=== PATIENT | male | born 1950 | race Caucasian/White ===

== ENCOUNTER 2017-11-06 16:24 | Inpatient (IN) | payer OTHER ==
[~2017-11-06] VITALS: Ht 182.9 cm; Wt 123.0 kg
[~2017-11-06 16:24] MED LIST: ENOX120P SQ; LEVO112T2 PO; LISI10TA PO; OMEP20TA39 PO; OXYC1SOL5 PO; ROPI2 PO; TEMA15 PO; WARF10 PO
[2017-11-06 16:47] VITALS: BP 144/71; PULSE 85; RESP 26; TEMP 98.3; O2SAT 95
[2017-11-06 17:03] VITALS: BP 141/70; PULSE 82; RESP 20; O2SAT 94
[2017-11-06] MEDS ORDERED: LEVO112T2 PO (17:07)
[2017-11-06] MEDS ORDERED: OMEP20TA93 PO (17:07)
--- NOTE | 2017-11-06 17:34 | PD ---
HPI Chief Complaint: Respiratory Symptoms Time Seen by Provider: 17:05 Travel History International Travel<30 days: No Contact w/Intl Traveler<30days: No Traveled to known affect area: No History of Present Illness HPI 67-year-old male with history of renal cancer, previous pulmonary emboli, presents very with the report from [facility] stating that he had a pneumonia and new pulmonary emboli. The patient reports that over the last couple days he has not been feeling well. He reports that 24 hours ago he was very short of breath. Patient is an employee here at [employer]. When asked if he knew why he had previous pulmonary emboli, he states they never found the source and just assumed it was due to his neoplastic process with his kidney cancer. He had a nephrectomy in 2016 when he had his pulmonary embolus. PFSH Past Medical History Cancer: Yes (SKIN) Cardiovascular Problems: No Diabetes: No Endocrine: Yes Gastrointestinal Disorders: Yes (GERD, IBS) Genitourinary: No Hepatitis: No Hiatal Hernia: No Hypertension: Yes Immune Disorder: No Musculoskeletal: Yes (ARTHRITIS) Psychiatric: No Respiratory: No Thyroid Disease: Yes Past Surgical History AICD: No Joint Replacement: No Neurologic Surgery: Yes (LAMINECTOMY) Pacemaker: No Other Surgery: Yes (LEFT NEPHRECTOMY ) Social History Alcohol Use: Yes Tobacco Use: No Substance Use: No Allergies-Medications (Allergen,Severity, Reaction): Coded Allergies: Sulfa (Sulfonamide Antibiotics) (Unverified Adverse Reaction, Severe, GASTRIC/ ABDOMINAL CRAMPING, 03/03/17) Reported Meds & Prescriptions Reported Meds & Active Scripts Active Reported Losartan-Hydrochlorothiazide 50-12.5 Mg Tab 1 Tab PO DAILY Losartan-Hctz 50-12.5 mg Tab (Losartan/Hydrochlorothiazide) 50 Mg-12.5 Mg Tablet 20 Tamsulosin (Tamsulosin HCl) 0.4 Mg Cap 0.4 Mg HS Omeprazole 20 Mg Tab 20 Mg PO BID Levothyroxine (Levothyroxine Sodium) 112 Mcg Tab 112 Mcg PO DAILY Review of Systems Except as stated in HPI: all other systems reviewed are Neg General / Constitutional: No: Fever, Chills HENT: Positive: Lightheadedness, No: Headaches Cardiovascular: Positive: Chest Pain or Discomfort (Left lateral pleuritic), No : Palpitations, Diaphoresis Respiratory: Positive: Shortness of Breath, No: Wheezing, Sneezing Gastrointestinal: No: Nausea, Vomiting, Abdominal Pain Genitourinary: Positive: Flank Pain (Left upper flank), No: Dysuria Musculoskeletal: Positive: Weakness, No: Pain Neurologic: No: Weakness, Dizziness, Headache Physical Exam Narrative GENERAL: Well-developed well-nourished male in no acute respiratory distress. SKIN: Focused skin assessment warm/dry. HEAD: Atraumatic. Normocephalic. EYES: Pupils equal and round. No scleral icterus. No injection or drainage. ENT: No nasal bleeding or discharge. Mucous membranes pink and moist. NECK: Trachea midline. Supple. CARDIOVASCULAR: Regular rate and rhythm. No murmur appreciated. RESPIRATORY: No accessory muscle use. Questionable fine rales heard at the left lung base. Right lung hamilton appeared clear. GASTROINTESTINAL: Abdomen soft, non-tender, nondistended. MUSCULOSKELETAL: No obvious deformities. No clubbing. No cyanosis. No edema. No palpable cords. NEUROLOGICAL: Awake and alert. No obvious cranial nerve deficits. Motor grossly within normal limits. Normal speech. Data Data Last Documented VS Vital Signs Date Time Temp Pulse Resp B/P (MAP) Pulse Ox O2 Delivery O2 Flow Rate FiO2 11/06/17 17:03 82 20 141/70 (93) 94 Room Air 11/06/17 16:47 98.3 Orders Orders Electrocardiogram (11/06/17 ) Complete Blood Count With Diff (11/06/17 17:22) Comprehensive Metabolic Panel (11/06/17 17:22) Prothrombin Time / Inr (Pt) (11/06/17 17:22) Act Partial Throm Time (Ptt) (11/06/17 17:22) Iv Access Insert/Monitor (11/06/17 17:22) Ecg Monitoring (11/06/17 17:22) Oximetry (11/06/17 17:22) Type And Screen (11/06/17 17:22) Apixaban (Eliquis) (11/06/17 18:00) Ceftriaxone Inj (Rocephin Inj) (11/06/17 18:00) Azithromycin Inj (Zithromax Inj) (11/06/17 18:00) Blood Culture (11/06/17 17:50) Levothyroxine (Synthroid) (11/07/17 06:00) Pantoprazole (Protonix) (11/06/17 21:00) Admit To Inpatient (11/06/17 ) Vital Signs (Adult) Q4H (11/06/17 18:11) Activity Oob With Assistance (11/06/17 18:11) Track Broom Operator / Telemetry .CONTINUOUS (11/06/17 18:11) Diet Heart Healthy (11/06/17 Dinner) Sodium Chloride 0.9% Flush (Ns Flush) (11/06/17 18:15) Sodium Chloride 0.9% Flush (Ns Flush) (11/06/17 21:00) Acetaminophen (Tylenol) (11/06/17 18:15) Ondansetron Inj (Zofran Inj) (11/06/17 18:15) Resp Oxygen Stefano C Titrat 1-4 L (11/06/17 ) Scd Bilateral/Knee High LESLIE.BID (11/06/17 18:11) Naloxone Inj (Narcan Inj) (11/06/17 18:15) Docusate Sodium-Senna (Adenike-Colace) (11/06/17 21:00) Magnesium Hydroxide Liq (Milk Of Magnesi (11/06/17 18:15) Sennosides (Senokot) (11/06/17 18:15) Bisacodyl Supp (Dulcolax Supp) (11/06/17 18:15) Lactulose Liq (Lactulose Liq) (11/06/17 18:15) Inpatient Certification (11/06/17 ) Admit Order (Ed Use Only) (11/06/17 18:31) Us Leg Venous Doppler Bilat (11/06/17 18:32) Labs Laboratory Tests Test 11/06/17 17:44 White Blood Count 10.5 TH/MM3 Red Blood Count 4.70 MIL/MM3 Hemoglobin 14.8 GM/DL Hematocrit 43.4 % Mean Corpuscular Volume 92.3 FL Mean Corpuscular Hemoglobin 31.5 PG Mean Corpuscular Hemoglobin Concent 34.1 % Red Cell Distribution Width 12.7 % Platelet Count 238 TH/MM3 Mean Platelet Volume 7.9 FL Neutrophils (%) (Auto) 70.9 % Lymphocytes (%) (Auto) 14.0 % Monocytes (%) (Auto) 12.6 % Eosinophils (%) (Auto) 2.2 % Basophils (%) (Auto) 0.3 % Neutrophils # (Auto) 7.4 TH/MM3 Lymphocytes # (Auto) 1.5 TH/MM3 Monocytes # (Auto) 1.3 TH/MM3 Eosinophils # (Auto) 0.2 TH/MM3 Basophils # (Auto) 0.0 TH/MM3 CBC Comment DIFF FINAL Differential Comment Prothrombin Time 10.2 SEC Prothromb Time International Ratio 1.0 RATIO Activated Partial Thromboplast Time 24.5 SEC Blood Urea Nitrogen 17 MG/DL Creatinine 1.58 MG/DL Random Glucose 107 MG/DL Total Protein 7.7 GM/DL Albumin 3.8 GM/DL Calcium Level 8.6 MG/DL Alkaline Phosphatase 78 U/L Aspartate Amino Transf (AST/SGOT) 19 U/L Alanine Aminotransferase (ALT/SGPT) 24 U/L Total Bilirubin 0.5 MG/DL Sodium Level 138 MEQ/L Potassium Level 4.2 MEQ/L Chloride Level 105 MEQ/L Carbon Dioxide Level 28.2 MEQ/L Anion Gap 5 MEQ/L Estimat Glomerular Filtration Rate 44 ML/MIN MDM Medical Decision Making Medical Screen Exam Complete: Yes Emergency Medical Condition: Yes Differential Diagnosis Pneumonia versus pulmonary embolus versus DVT Narrative Course 67-year-old male with a history of renal cell carcinoma status post nephrectomy , previous pulmonary embolus in 2016, who presents today with diagnosis of pulmonary embolus and left lower lobe pneumonia. Patient states that he was seen at the [facility]. He states that he had a chest x-ray that showed a pneumonia. He states they also did a CT scan of his chest which showed pulmonary embolus. The patient had been on 6 months of warfarin in 2016. He states they stopped that warfarin because his pulmonary embolus had resolved. There is no reported fevers, chills. He has been started on Rocephin and Zithromax. Cultures are pending. He is also been started on Eliquis. He is given his first dose of 5 mg here in the emergency department. The case was discussed with Dr. Alejandro Noland, [facility] physician covering tonight. He agrees with the admission and requested we put the patient under Dr. Edison Parham. Bilateral lower extremity ultrasounds have been ordered. They are currently pending. Diagnosis Primary Impression: Pulmonary embolus Additional Impressions: Pneumonia History of left renal cancer Admitting Information Admitting Physician Requests: Admit Faheem Delatorre MD Nov 06, 2017 17:34
[2017-11-06] MEDS ORDERED: APIXABAN 5 MG TABLET PO ONE (18:00)
[2017-11-06] MEDS ORDERED: cefTRIAXone INJ 1,000 MG in SODIUM CHLORIDE 0.9% INJ 100 ML IV ONE (18:00)
[2017-11-06] MEDS ORDERED: AZITHROMYCIN INJ 500 MG in SODIUM CHLOR 0.9% 250 ML INJ 250 ML IV ONE (18:00)
[2017-11-06 18:11] LABS: AUTOMATED NEUTROPHIL # 7.4 TH/MM3 (1.8-7.7); BASOPHIL % 0.3 % (0.0-2.0); EOSINOPHIL # 0.2 TH/MM3 (0-0.4); EOSINOPHIL % 2.2 % (0.0-4.0); HEMATOCRIT 43.4 % (39.0-51.0); HEMOGLOBIN 14.8 GM/DL (13.0-17.0); LYMPHOCYTE # 1.5 TH/MM3 (1.0-4.8); MEAN CELL VOLUME 92.3 FL (80.0-100.0); MEAN CORPUSCULAR HEMOGLOBIN 31.5 PG (27.0-34.0); MEAN CORPUSCULAR HGB CONC 34.1 % (32.0-36.0); MEAN PLATELET VOLUME 7.9 FL (7.0-11.0); MONO % 12.6 % (0.0-8.0); MONOCYTE # 1.3 TH/MM3 (0-0.9); NEUT % 70.9 % (16.0-70.0); PLATELET COUNT 238 TH/MM3 (150-450); RED CELL DISTRIBUTION WIDTH 12.7 % (11.6-17.2); WHITE BLOOD COUNT 10.5 TH/MM3 (4.0-11.0)
[2017-11-06] MEDS ORDERED: ACETAMINOPHEN 325 MG TAB PO PRN (18:15)
[2017-11-06] MEDS ORDERED: MAGNESIUM HYDROXIDE SUSP 30 ML CUP PO PRN (18:15)
[2017-11-06] MEDS ORDERED: SENNOSIDES 8.6 MG TAB PO PRN (18:15)
[2017-11-06] MEDS ORDERED: BISACODYL 10 MG SUPP RECTAL PRN (18:15)
[2017-11-06] MEDS ORDERED: SODIUM CHLORIDE 0.9% FLUSH 10 ML FLUSH IV FLUSH PRN (18:15)
[2017-11-06] MEDS ORDERED: NALOXONE HCL 0.4 MG/ML AMP IV PUSH PRN (18:15)
[2017-11-06] MEDS ORDERED: ONDANSETRON HCL 4 MG/2 ML VIAL IVP PRN (18:15)
[2017-11-06] MEDS ORDERED: LACTULOSE SYRUP 20 GM/30 ML CUP PO PRN (18:15)
[2017-11-06 18:19] LABS: PROTHROMBIN TIME - PATIENT 10.2 SEC (9.8-11.6)
[2017-11-06 18:29] LABS: ALBUMIN 3.8 GM/DL (3.4-5.0); ALT (GPT) 24 U/L (12-78); AST (GOT) 19 U/L (15-37); BICARBONATE 28.2 MEQ/L (21.0-32.0); BLOOD UREA NITROGEN 17 MG/DL (7-18); CALCIUM 8.6 MG/DL (8.5-10.1); CHLORIDE 105 MEQ/L (98-107); CREATININE 1.58 MG/DL (0.60-1.30); GLOMERULAR FILTRATION RATE 44 ML/MIN (>89); GLUCOSE,RANDOM 107 MG/DL (74-106); SODIUM (NA) 138 MEQ/L (136-145)
[2017-11-06 18:31] LABS: ALKALINE PHOSPHATASE 78 U/L (45-117); TOTAL BILIRUBIN ADULT 0.5 MG/DL (0.2-1.0); TOTAL PROTEIN 7.7 GM/DL (6.4-8.2)
[2017-11-06] MEDS ORDERED: LOSA50TA2 PO (18:44)
[2017-11-06] MEDS ORDERED: TAMS0.4C4 (18:44)
[2017-11-06] MEDS ORDERED: LOSA50TA6 (18:44)
[2017-11-06 20:00] VITALS: PULSE 90
[2017-11-06 20:06] VITALS: BP 137/78; PULSE 77; RESP 16; O2SAT 95
--- NOTE | 2017-11-06 20:41 | RADRPT ---
EXAM DATE/TIME: 11/06/2017 19:17 [facility] COMPARISON: US LEG BILATERAL VENOUS DOPPLER, July 28, 2015, 19:18. INDICATIONS : Pulmonary embolism. MEDICAL HISTORY : Gastroesophageal reflux disease. Hypertension. Pulmonary embolis. Left renal cancer. Skin cancer. Th yroid disease. Arthritis. Syncope. IBS. SURGICAL HISTORY : Nephrectomy, left. Laminectomy. ENCOUNTER: Subsequent ACUITY: 1 day PAIN SCORE: 0/10 LOCATION: Bilateral legs. TECHNIQUE: Venous ultrasound of the left and right leg was performed from the inguinal ligament to the proximal calf. Real-time, color Doppler and spectral tracing, compression and augmentation techniques were us ed. FINDINGS: RIGHT LEG: There is normal compressibility of the deep venous system from the inguinal region to the proximal ca lf. No echogenic clot is seen in the lumen of the common femoral, femoral, popliteal, and posterior tibial veins. There is a normal response of the venous system to proximal and distal augmentation an d respiration. LEFT LEG: There is normal compressibility of the deep venous system from the inguinal region to the proximal ca lf. No echogenic clot is seen in the lumen of the common femoral, femoral, popliteal, and posterior tibial veins. There is a normal response of the venous system to proximal and distal augmentation an d respiration. CONCLUSION: No DVT. Ernesto Das MD on November 06, 2017 at 20:38 Board Certified Radiologist. This report was verified electronically.
[2017-11-06] MEDS: DOCUSATE SODIUM 50 MG/SENNA 8.6 MG TAB PO SCH (21:10)
[2017-11-06] MEDS: PANTOPRAZOLE SOD 20 MG DELAYED RELEASE TAB PO SCH (21:10)
[2017-11-06] MEDS: SODIUM CHLORIDE 0.9% FLUSH 10 ML FLUSH IV FLUSH SCH (21:10)
--- NOTE | 2017-11-06 21:43 | HHI.HP ---
HPI Service [facility] Primary Care Physician Salty Wallace MD Admission Diagnosis Pulmonary embolus, pneumonia, hx of renal cancer Chief Complaint: sent by [facility] for pneumonia and PE Travel History International Travel<30 Days: No Contact w/Intl Traveler <30 Da: No Traveled to Known Affected Are: No History of Present Illness 67 y/o male with hx renal cell cancer with left nephrectomy in past who has hx of pulmonary embolus treated in 2016 with coumadin for 6 months ,who for last day or so has felt poor with SOB,,left sided back pain and went to [facility] for evaluation and they ordered chest xray which showed left lower lobe infiltrate and there was suspicion of PE a CT was done which showed right lower lobe PE and sent to [place] for admit. In er started on Eliquis and rocephin and zithromax and will continued at this time. Review of Systems Respiratory: COMPLAINS OF: Shortness of breath Musculoskeletal: COMPLAINS OF: Back pain Past Family Social History Past Medical History left renal cell ca,hypertension,djd,PE,GERD Past Surgical History left nephrectomy,laminectomy Reported Medications losartan 50,hctz12.5,tamsulosin prilosecd,levothyroxine Allergies: Coded Allergies: Sulfa (Sulfonamide Antibiotics) (Unverified Adverse Reaction, Severe, GASTRIC/ ABDOMINAL CRAMPING, 03/03/17) Social History NS,ND Physical Exam Vital Signs Vital Signs Date Time Temp Pulse Resp B/P (MAP) Pulse Ox O2 Delivery O2 Flow Rate FiO2 11/06/17 20:06 77 16 137/78 (97) 95 Nasal Cannula 2.00 11/06/17 17:03 82 20 141/70 (93) 94 Room Air 11/06/17 17:03 81 20 94 Room Air 11/06/17 16:47 98.3 85 26 144/71 (95) 95 Physical Exam GENERAL: This is a well-nourished, well-developed patient, in no apparent distress. SKIN: No rashes, ecchymoses or lesions. Cool and dry. HEAD: Atraumatic. Normocephalic. No temporal or scalp tenderness. EYES: Pupils equal round and reactive. Extraocular motions intact. No scleral icterus. No injection or drainage. ENT: Nose without bleeding, purulent drainage or septal hematoma. Throat without erythema, tonsillar hypertrophy or exudate. Uvula midline. Airway patent. NECK: Trachea midline. No JVD or lymphadenopathy. Supple, nontender, no meningeal signs. CARDIOVASCULAR: Regular rate and rhythm without murmurs, gallops, or rubs. RESPIRATORY: Clear to auscultation. Breath sounds equal bilaterally. rales left base GASTROINTESTINAL: Abdomen soft, non-tender, nondistended. No hepato-splenomegaly , or palpable masses. No guarding. MUSCULOSKELETAL: Extremities without clubbing, cyanosis, or edema. No joint tenderness, effusion, or edema noted. No calf tenderness. Negative Homans sign bilaterally. NEUROLOGICAL: Awake and alert. Cranial nerves II through XII intact. Motor and sensory grossly within normal limits. Five out of 5 muscle strength in all muscle groups. Normal speech. Laboratory Laboratory Tests Test 11/06/17 17:44 White Blood Count 10.5 Red Blood Count 4.70 Hemoglobin 14.8 Hematocrit 43.4 Mean Corpuscular Volume 92.3 Mean Corpuscular Hemoglobin 31.5 Mean Corpuscular Hemoglobin Concent 34.1 Red Cell Distribution Width 12.7 Platelet Count 238 Mean Platelet Volume 7.9 Neutrophils (%) (Auto) 70.9 Lymphocytes (%) (Auto) 14.0 Monocytes (%) (Auto) 12.6 Eosinophils (%) (Auto) 2.2 Basophils (%) (Auto) 0.3 Neutrophils # (Auto) 7.4 Lymphocytes # (Auto) 1.5 Monocytes # (Auto) 1.3 Eosinophils # (Auto) 0.2 Basophils # (Auto) 0.0 CBC Comment DIFF FINAL Differential Comment Prothrombin Time 10.2 Prothromb Time International Ratio 1.0 Activated Partial Thromboplast Time 24.5 Blood Urea Nitrogen 17 Creatinine 1.58 Random Glucose 107 Total Protein 7.7 Albumin 3.8 Calcium Level 8.6 Alkaline Phosphatase 78 Aspartate Amino Transf (AST/SGOT) 19 Alanine Aminotransferase (ALT/SGPT) 24 Total Bilirubin 0.5 Sodium Level 138 Potassium Level 4.2 Chloride Level 105 Carbon Dioxide Level 28.2 Anion Gap 5 Estimat Glomerular Filtration Rate 44 Date/Time Source Procedure Growth Status 11/06/17 17:55 Blood Peripheral Aerobic Blood Culture Pending Received 11/06/17 17:55 Blood Peripheral Anaerobic Blood Culture Pending Received Result Diagram: 11/06/17 1744 11/06/17 1744 Imaging reports from outpatient left lower lobe infiltrate and rt lower lobe PE Course start rocephin and zithromax and eliquis Caprini VTE Risk Assessment Caprini VTE Risk Assessment: Mod/High Risk (score >= 2) Caprini Risk Assessment Model Point Value = 1 Point Value = 2 Point Value = 3 Point Value = 5 Age 41-60 Minor surgery BMI > 25 kg/m2 Swollen legs Varicose veins or History of unexplained or recurrent spontaneous Oral contraceptives or hormone replacement Sepsis (< 1 month) Serious lung disease, including pneumonia (< 1 month) Abnormal pulmonary function Acute myocardial infarction Congestive heart failure (< 1 month) History of inflammatory bowel disease Medical patient at bed rest Age 61-74 Arthroscopic surgery Major open surgery (> 45 min) Laparoscopic surgery (> 45 min) Malignancy Confined to bed (> 72 hours) Immobilizing plaster cast Central venous access Age >= 75 History of VTE Family history of VTE Factor V Leiden Prothrombin [id number] Lupus anticoagulant Anticardiolipin antibodies Elevated serum homocysteine Heparin-induced thrombocytopenia Other congenital or acquired thrombophilia Stroke (< 1 month) Elective arthroplasty Hip, pelvis, or leg fracture Acute spinal cord injury (< 1 month) Prophylaxis Regimen Total Risk Factor Score Risk Level Prophylaxis Regimen 0-1 Low Early ambulation 2 Moderate Order ONE of the following: *Sequential Compression Device (SCD) *Heparin 5000 units SQ BID 3-4 Higher Order ONE of the following medications: *Heparin 5000 units SQ TID *Enoxaparin/Lovenox 40 mg SQ daily (WT < 150 kg, CrCl > 30 mL/min) *Enoxaparin/Lovenox 30 mg SQ daily (WT < 150 kg, CrCl > 10-29 mL/min) *Enoxaparin/Lovenox 30 mg SQ BID (WT < 150 kg, CrCl > 30 mL/min) AND/OR *Sequential Compression Device (SCD) 5 or more Highest Order ONE of the following medications: *Heparin 5000 units SQ TID (Preferred with Epidurals) *Enoxaparin/Lovenox 40 mg SQ daily (WT < 150 kg, CrCl > 30 mL/min) *Enoxaparin/Lovenox 30 mg SQ daily (WT < 150 kg, CrCl > 10-29 mL/min) *Enoxaparin/Lovenox 30 mg SQ BID (WT < 150 kg, CrCl > 30 mL/min) AND *Sequential Compression Device (SCD) Assessment and Plan Problem List: (1) Pulmonary emboli ICD Codes: I26.99 - Other pulmonary embolism without acute cor pulmonale Status: Acute Plan: start eliquis 5 bid oxygen prn pain med prn (2) Lung infiltrate ICD Codes: R91.8 - Other nonspecific abnormal finding of lung field Plan: recheck xray in am rocephin and zithromax (3) Hypertension ICD Codes: I10 - Essential (primary) hypertension Plan: continue current medications Assessment and Plan further plan as case develops may need to obtain lab work for recurrent PE Code Status full Discussed Condition With patient Physician Certification 2 Midnight Certification Type: Admission for Inpatient Services Order for Inpatient Services The services are ordered in accordance with Medicare regulations or non- Medicare payer requirements, as applicable. In the case of services not specified as inpatient-only, they are appropriately provided as inpatient services in accordance with the 2-midnight benchmark. Estimated LOS (days): 2 2 days is the estimated time the patient will need to remain in the hospital, assuming treatment plan goals are met and no additional complications. Post-Hospital Plan: Home Alejandro Christianson MD Nov 06, 2017 21:43
[2017-11-06] MEDS ORDERED: cefTRIAXone INJ 1,000 MG in SODIUM CHLORIDE 0.9% INJ 100 ML IV SCH (22:00)
[2017-11-06] MEDS ORDERED: AZITHROMYCIN INJ 500 MG in SODIUM CHLOR 0.9% 250 ML INJ 250 ML IV SCH (23:00)
[2017-11-07] VITALS (9 sets, daily range): BP systolic 111–139; BP diastolic 58–75; PULSE 64–79; RESP 16–20; TEMP 97.6–98.4; O2SAT 92–96
[2017-11-07] MEDS: MORPHINE SULFATE 2 MG/ML SYRINGE IV PUSH PRN ×2 (02:34→11:51)
[2017-11-07] MEDS: LEVOTHYROXINE SODIUM 112 MCG TAB PO SCH (06:58)
[2017-11-07] MEDS: DOCUSATE SODIUM 50 MG/SENNA 8.6 MG TAB PO SCH ×2 (08:38→20:45)
[2017-11-07] MEDS: HYDROCHLOROTHIAZIDE 12.5 MG CAP PO SCH (08:39)
[2017-11-07] MEDS: PANTOPRAZOLE SOD 20 MG DELAYED RELEASE TAB PO SCH ×2 (08:39→20:45)
[2017-11-07] MEDS: APIXABAN 5 MG TABLET PO SCH ×2 (08:39→20:45)
[2017-11-07] MEDS: LOSARTAN 50 MG TAB PO SCH (08:39)
[2017-11-07] MEDS: SODIUM CHLORIDE 0.9% FLUSH 10 ML FLUSH IV FLUSH SCH ×2 (08:40→20:51)
--- NOTE | 2017-11-07 11:26 | HHI.PR ---
Subjective Remarks feeling a little better. Objective Vitals heart reg lung good air entry abd s/nt ext no edema Vital Signs Date Time Temp Pulse Resp B/P (MAP) Pulse Ox O2 Delivery O2 Flow Rate FiO2 11/07/17 08:00 69 11/07/17 08:00 97.6 79 18 139/58 (85) 92 11/07/17 04:00 97.9 69 17 128/66 (86) 96 11/07/17 01:00 98.4 75 16 134/75 (94) 95 11/07/17 00:55 11/06/17 20:06 77 16 137/78 (97) 95 Nasal Cannula 2.00 11/06/17 20:00 90 11/06/17 17:03 82 20 141/70 (93) 94 Room Air 11/06/17 17:03 81 20 94 Room Air 11/06/17 16:47 98.3 85 26 144/71 (95) 95 Result Diagram: 11/06/17 1740 11/06/17 1744 Imaging reports from outpatient left lower lobe infiltrate and rt lower lobe PE A/P Problem List: (1) Pulmonary emboli ICD Codes: I26.99 - Other pulmonary embolism without acute cor pulmonale Status: Acute Plan: 1. admitted with probably left lung pna. 2. cta chest done outpt showed tiny right lower lung p.e. ?new vs residual. pt had right pulm art p.e. back in 2016 and received 6m coumadin. 3. left rcc s/p nephrectomy 2016 cont iv abx for pna blood cx pending. check urine antigens pt started on eliquis yesterday by ED. was trying to compare the CTA from yesterday to 2016...unable to locate the disc as it has apparently been lost between ED to admission. will try to obtain another copy but it is weekend and closed. (2) Lung infiltrate ICD Codes: R91.8 - Other nonspecific abnormal finding of lung field Status: Acute (3) Hypertension ICD Codes: I10 - Essential (primary) hypertension Status: Chronic Plan: continue current medications (4) Renal cell carcinoma ICD Codes: C64.9 - Malignant neoplasm of unspecified kidney, except renal pelvis Status: Resolved Edison Parham MD Nov 07, 2017 11:26
--- NOTE | 2017-11-07 16:59 | EKG ---
Date Performed: 11/06/2017 Time Performed: 17:29:44 PTAGE: 67 years EKG: Sinus rhythm NORMAL ECG Since the PREVIOUS TRACING , no significant change noted PREVIOUS TRACIN07/28/2015 22.04 DOCTOR: Jairo Buck Interpretating Date/Time 11/07/2017 16:55:06
[2017-11-07] MEDS: cefTRIAXone INJ 1,000 MG in SODIUM CHLORIDE 0.9% INJ 100 ML IV SCH (17:23)
[2017-11-07] MEDS: AZITHROMYCIN INJ 500 MG in SODIUM CHLOR 0.9% 250 ML INJ 250 ML IV SCH (18:52)
[2017-11-07] MEDS: diphenhydrAMINE HCL 25 MG CAP PO PRN (22:20)
[2017-11-08] VITALS (9 sets, daily range): BP systolic 108–135; BP diastolic 61–79; PULSE 63–97; RESP 15–22; TEMP 97.6–98.1; O2SAT 93–95
[2017-11-08] MEDS: LEVOTHYROXINE SODIUM 112 MCG TAB PO SCH (06:31)
[2017-11-08 07:15] LABS: AUTOMATED NEUTROPHIL # 4.9 TH/MM3 (1.8-7.7); BASOPHIL % 0.4 % (0.0-2.0); EOSINOPHIL # 0.4 TH/MM3 (0-0.4); EOSINOPHIL % 4.7 % (0.0-4.0); HEMATOCRIT 41.9 % (39.0-51.0); HEMOGLOBIN 14.4 GM/DL (13.0-17.0); LYMPH % 18.2 % (9.0-44.0); LYMPHOCYTE # 1.4 TH/MM3 (1.0-4.8); MEAN CELL VOLUME 90.4 FL (80.0-100.0); MEAN CORPUSCULAR HEMOGLOBIN 31.1 PG (27.0-34.0); MEAN CORPUSCULAR HGB CONC 34.4 % (32.0-36.0); MEAN PLATELET VOLUME 7.5 FL (7.0-11.0); MONOCYTE # 0.9 TH/MM3 (0-0.9); NEUT % 64.7 % (16.0-70.0); PLATELET COUNT 266 TH/MM3 (150-450); RED BLOOD COUNT 4.63 MIL/MM3 (4.50-5.90); RED CELL DISTRIBUTION WIDTH 12.4 % (11.6-17.2); WHITE BLOOD COUNT 7.6 TH/MM3 (4.0-11.0)
[2017-11-08 07:40] LABS: BICARBONATE 25.8 MEQ/L (21.0-32.0); CALCIUM 8.5 MG/DL (8.5-10.1); CREATININE 1.07 MG/DL (0.60-1.30)
[2017-11-08] MEDS: HYDROCHLOROTHIAZIDE 12.5 MG CAP PO SCH (08:37)
[2017-11-08] MEDS: PANTOPRAZOLE SOD 20 MG DELAYED RELEASE TAB PO SCH ×2 (08:37→20:11)
[2017-11-08] MEDS: LOSARTAN 50 MG TAB PO SCH (08:37)
[2017-11-08] MEDS: DOCUSATE SODIUM 50 MG/SENNA 8.6 MG TAB PO SCH ×2 (08:37→20:11)
[2017-11-08] MEDS: APIXABAN 5 MG TABLET PO SCH ×2 (08:37→20:11)
[2017-11-08] MEDS: SODIUM CHLORIDE 0.9% FLUSH 10 ML FLUSH IV FLUSH SCH ×2 (08:38→20:12)
[2017-11-08] MEDS: guaiFENesin E.R. 600 MG TAB PO SCH ×2 (10:25→20:11)
[2017-11-08] MEDS ORDERED: LORATADINE 10 MG TAB PO ONE (11:00)
--- NOTE | 2017-11-08 16:14 | HHI.PR ---
Subjective Remarks feeling better. Objective Vitals heart reg lung few course bs left base abd s/nt ext no edema Vital Signs Date Time Temp Pulse Resp B/P (MAP) Pulse Ox O2 Delivery O2 Flow Rate FiO2 11/08/17 12:00 67 11/08/17 12:00 98.1 70 16 133/79 (97) 95 11/08/17 08:00 97.7 74 16 108/61 (77) 94 11/08/17 08:00 63 11/08/17 04:00 98.0 68 22 121/64 (83) 93 11/08/17 03:42 66 11/08/17 00:00 98.0 69 20 135/65 (88) 94 11/07/17 23:42 66 11/07/17 20:33 94 21 11/07/17 20:00 98.0 68 20 119/72 (88) 94 11/07/17 19:42 72 Result Diagram: 11/08/17 0658 11/08/17 0658 Imaging reports from outpatient left lower lobe infiltrate and rt lower lobe PE A/P Problem List: (1) Pulmonary emboli ICD Codes: I26.99 - Other pulmonary embolism without acute cor pulmonale Status: Acute Plan: 1. admitted with left lung pna at the base. 2. cta chest done outpt showed tiny right lower lung p.e. ?new vs residual. pt had right pulm art p.e. back in 2016 and received 6m coumadin. After reviewing the CTA from 2016 vs the CTA from this week... my guess is it's probably tiny residual from prior PE and doubt it has anything to do with his presenting sx's 3. left rcc s/p nephrectomy 2016 cont iv abx for pna. plan for d/c home tomorrow on po abx add mucinex and also claritin for post nasal gtt. I think he should f/u pcp closely and get repeat outpt cxr to assure resolution especially given his rcc hx. blood cx ngtd. urine antigens neg. pt started on eliquis by ED. will call pcp tomorrow and discuss what to do in this situation. (2) Lung infiltrate ICD Codes: R91.8 - Other nonspecific abnormal finding of lung field Status: Acute (3) Hypertension ICD Codes: I10 - Essential (primary) hypertension Status: Chronic Plan: continue current medications (4) Renal cell carcinoma ICD Codes: C64.9 - Malignant neoplasm of unspecified kidney, except renal pelvis Status: Resolved Edison Parham MD Nov 08, 2017 16:14
[2017-11-08] MEDS: cefTRIAXone INJ 1,000 MG in SODIUM CHLORIDE 0.9% INJ 100 ML IV SCH (17:24)
[2017-11-08] MEDS: AZITHROMYCIN INJ 500 MG in SODIUM CHLOR 0.9% 250 ML INJ 250 ML IV SCH (18:33)
[2017-11-08] MEDS: diphenhydrAMINE HCL 25 MG CAP PO PRN (22:49)
[2017-11-09] VITALS (7 sets, daily range): BP systolic 124–166; BP diastolic 66–88; PULSE 61–92; RESP 18–20; TEMP 97.7–98.6; O2SAT 95–96
[2017-11-09] MEDS: LEVOTHYROXINE SODIUM 112 MCG TAB PO SCH (05:03)
[2017-11-09] MEDS ORDERED: LORATADINE 10 MG TAB PO SCH (09:00)
[2017-11-09] MEDS: APIXABAN 5 MG TABLET PO SCH (09:50)
[2017-11-09] MEDS: PANTOPRAZOLE SOD 20 MG DELAYED RELEASE TAB PO SCH (09:50)
[2017-11-09] MEDS: DOCUSATE SODIUM 50 MG/SENNA 8.6 MG TAB PO SCH (09:50)
[2017-11-09] MEDS: guaiFENesin E.R. 600 MG TAB PO SCH (09:50)
[2017-11-09] MEDS: HYDROCHLOROTHIAZIDE 12.5 MG CAP PO SCH (09:50)
[2017-11-09] MEDS: LOSARTAN 50 MG TAB PO SCH (09:50)
[2017-11-09] MEDS: SODIUM CHLORIDE 0.9% FLUSH 10 ML FLUSH IV FLUSH SCH (09:55)
[2017-11-09] MEDS ORDERED: APIX5TAB PO (14:16)
[2017-11-09] MEDS ORDERED: CLAR10TA7 PO (14:16)
[2017-11-09] MEDS ORDERED: guaiFENesin ER PO (14:16)
--- NOTE | 2017-11-09 14:25 | HHI.DCPOC ---
Discharge Care Plan Diagnosis: (1) Lung infiltrate (2) Pulmonary emboli (3) Renal cell carcinoma (4) Hypertension Goals to Promote Your Health * To prevent worsening of your condition and complications * To maintain your health at the optimal level Directions to Meet Your Goals Take your medications as prescribed Follow your dietary instruction Follow activity as directed Keep your appointments as scheduled Take your immunizations and boosters as scheduled If your symptoms worsen call your PCP, if no PCP go to Urgent Care Center or Emergency Room Smoking is Dangerous to Your Health. Avoid second hand smoke Call the 24-hour hour crisis hotline for domestic abuse at Vandana Ribeiro Nov 09, 2017 14:25
--- NOTE | 2017-11-09 15:18 | HHI.DS ---
Discharge Summary Admission Date Nov 06, 2017 at 18:34 Discharge Date: Nov 09, 2017 Admitting Diagnosis Pulmonary embolus, pneumonia, hx of renal cancer (1) Pulmonary emboli Diagnosis: Secondary ICD Codes: I26.99 - Other pulmonary embolism without acute cor pulmonale Status: Acute (2) Lung infiltrate Diagnosis: Principal ICD Codes: R91.8 - Other nonspecific abnormal finding of lung field Status: Acute (3) Hypertension Diagnosis: Secondary ICD Codes: I10 - Essential (primary) hypertension Status: Chronic (4) Renal cell carcinoma Diagnosis: Secondary ICD Codes: C64.9 - Malignant neoplasm of unspecified kidney, except renal pelvis Status: Resolved Brief History 67 y/o male with hx renal cell cancer with left nephrectomy in past who has hx of pulmonary embolus treated in 2016 with coumadin for 6 months ,who for last day or so has felt poor with SOB,,left sided back pain and went to [facility] for evaluation and they ordered chest xray which showed left lower lobe infiltrate and there was suspicion of PE a CT was done which showed right lower lobe PE and sent to [place] for admit. In er started on Eliquis and rocephin and zithromax and will continued at this time. CBC/BMP: 11/08/17 0658 11/08/17 0658 Significant Findings Laboratory Tests Test 11/06/17 17:44 11/08/17 06:58 Neutrophils (%) (Auto) 70.9 % (16.0-70.0) Monocytes (%) (Auto) 12.6 % (0.0-8.0) 12.0 % (0.0-8.0) Monocytes # (Auto) 1.3 TH/MM3 (0-0.9) Creatinine 1.58 MG/DL (0.60-1.30) Random Glucose 107 MG/DL (74-106) 111 MG/DL (74-106) Estimat Glomerular Filtration Rate 44 ML/MIN (>89) 69 ML/MIN (>89) Eosinophils (%) (Auto) 4.7 % (0.0-4.0) Imaging Last Impressions Lower Extremity Ultrasound 11/06/17 3382 Signed Impressions: Service Date/Time: Monday, November 06, 2017 19:17 - CONCLUSION: No DVT. Ernesto Das MD Hospital Course Pulmonary emboli - Pt is a 67 y/o WM with hx of renal cell cancer s/p left nephrectomy, and hx of pulmonary embolus treated in 2016 with Coumadin for 6 months. Pt had been having increased SOB and went to [facility] Urgent care for evaluation and they ordered chest X-ray which showed left lower lobe infiltrate and there was suspicion of PE so a CTA was performed which showed a tiny right lower lobe PE and pt was sent to [place] for admit. Pt was admitted with left lung PNA at the base. He has been treated with Azithromycin and Rocephin IV with clinical improvement. Mucinex and Claritin were added on 11/08 for complaints of post- nasal drip. Blood cx with NGTD. Urine antigens were negative. Pt will be discharged with 5 more day antibiotics with Levaquin 500mg po Daily. He can continue the Mucinex and the Claritin as well. Pt will likely need repeat imaging of the chest to assure resolution of the pneumonia in the setting of his hx of RCC. It was not clear if the tiny right lower lung PE is new vs residual. The case was discussed with the pts PCP, Dr. Wallace, and we will continue Eliquis 5mg po BID and Dr. Wallace will follow this as an outpt. Pt is to followup with his PCP, Dr. Wallace, in 1 week. Coronary Artery Calcifications - Pt with incidental finding of coronary artery calcifications on CTA and pt is very concerned about this given his family hx of CAD and his brother dying at a young age related to this. We offered for the pt to stay to get a stress test here at the hospital but he declined. He has not been having any chest pain. We will have him followup with [facility] Cardiology, Dr. Shaheen Can, in the next 1-2 weeks for evaluation. Pt Condition on Discharge: Stable Discharge Disposition: Discharge Home Discharge Instructions DIET: Follow Instructions for: Heart Healthy Diet Activities you can perform: Regular-No Restrictions Follow up Referrals: Cardiology - [address] Shaheen Can PCP Follow-up - [address] Wallace New Medications: Levofloxacin (Levofloxacin) 500 Mg Tablet 500 MG PO DAILY for Infection, #5 TAB 0 Refills Apixaban (Eliquis) 5 Mg Tab 5 MG PO BID for PE, #62 TAB Loratadine (Claritin) 10 Mg Tablet 10 MG PO DAILY for pneumonia, #10 TAB [guaiFENesin ER] () 600 MG TABCR 600 MG PO BID for pneumonia, #7 TAB Continued Medications: Levothyroxine (Levothyroxine) 112 Mcg Tab 112 MCG PO DAILY for Thyroid, TAB 0 Refills Losartan-Hydrochlorothiazide (Losartan-Hydrochlorothiazide) 50-12.5 Mg Tab 1 TAB PO DAILY for Blood Pressure Management, TAB 0 Refills Omeprazole (Omeprazole) 20 Mg Tab 20 MG PO BID, TAB 0 Refills Tamsulosin (Tamsulosin) 0.4 Mg Cap 0.4 MG HS for Manage Prostate Problems, CAP 0 Refills Vandana Ribeiro Nov 09, 2017 15:18
[2017-11-09] MEDS ORDERED: LEVO500T8 PO (15:36)
[2017-11-09] MEDS ORDERED: LEVOFLOXACIN 500 MG TAB PO ONE (15:45)
[2017-11-09] MEDS ORDERED: BISACODYL 10 MG SUPP RECTAL ONE (16:00)
== END 2017-11-09 17:23 | disposition home or self-care (01) | DRG 175 ==
LOC: NEPC 16:24 → NEDA 18:34 → NEDH 11-07 → N04A 11-07 00:57
PROVIDERS: ADMIT Hospitalist; ATTEND Hospitalist
DX: I26.99 Other pulmonary embolism without acute cor pulmonale (principal); J18.9 Pneumonia, unspecified organism; I10 Essential (primary) hypertension; M19.90 Unspecified osteoarthritis, unspecified site; K21.9 Gastro-esophageal reflux disease without esophagitis; Z85.528 Personal history of other malignant neoplasm of kidney; Z90.5 Acquired absence of kidney; Z88.2 Allergy status to sulfonamides
CPT/HCPCS: 80048; 80053; 85025; 85610; 85730; 86850; 86900; 86901; 87040; 87449; 93005; 93970; 94150; 96374; 96375; J0456; J0696; J2270; J7050